=== PATIENT | female | born 1960 | race Caucasian/White ===

== ENCOUNTER 2021-02-05 13:31 | Emergency (ER) | payer BC, MEDICAID ==
[~2021-02-05] VITALS: Ht 152.4 cm; Wt 68.0 kg
--- NOTE | 2021-02-05 13:57 | NUR ---
Patient is awake and alert, states she just received the third covgid vaccine and immediately started feeling weak and shaky in her legs, also c/o chest pain which she states "shes had for long time". Placed her on a monitor, vital signs stable
[2021-02-05] MEDS ORDERED: LORAZEPAM 0.5 MG TABLET PO ONE (14:00)
[2021-02-05] MEDS: IBUPROFEN 400 MG TABLET PO ONE (14:12)
[2021-02-05] MEDS ORDERED: LORAZEPAM 0.5 MG TABLET ONE (14:15)
[2021-02-05] MEDS ORDERED: ONDANSETRON ODT 4 MG TAB.RAPDIS ONE (14:18)
[2021-02-05] MEDS: LORAZEPAM 0.5 MG TABLET PO ONE (14:19)
--- NOTE | 2021-02-05 14:35 | NUR ---
Patient is now ambulating with steady gaqit and states "I feel much better now". No more shaking or weakness reported. DC and follow up instuctions given and explained to patient and who state they understand all instructions.
[2021-02-05 14:50] VITALS: BP 107/68
== END 2021-02-05 14:50 | disposition home or self-care (01) ==
LOC: ER 13:31
DX: R25.3 Fasciculation (principal)
CPT/HCPCS: 93005; A4663; Q0162